=== PATIENT | male | born 1965 ===

== ENCOUNTER 2018-01-05 16:22 | Emergency (ER) | payer BC ==
[2018-01-05 16:28] VITALS: BP 160/103
--- NOTE | 2018-01-05 16:38 | ER Report ---
History and Physical Time Seen By MD: 16:34 Hx. 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 [place] who comes emergency department today with complaint of shortness of breath patient [place] has never been to this height before I denies any chest pain nausea vomiting diarrhea fever chills says that he notices feeling short of breath and somewhat lightheaded talk to bloodied up at a truck stop advised to go the emergency room on arrival here he says his symptoms he feels better eyes and his oxygen saturations are 97% he is a smoker is no significant past medical history history of [place] pulmonary emboli offered him a conference a workup including a blood work chest x-ray EKG cardiac markers he is declined he says he feels better and wants to sign himself out against medical advice advised him against this and numerous occasions this was a witnessed conversation patient again adamantly states he doesn't want states patient be discharged AMA with a diagnosis of of shortness of breath and advised him to get a to a lower altitude REVIEW OF SYSTEMS: Respiratory: Shortness of breath no cough Cardiovascular: No chest pain, no palpitations. Gastrointestinal: No vomiting, no abdominal pain. Musculoskeletal: No back pain. Remainder of the 14 system rev: Yes Allergies: Coded Allergies: No Known Drug Allergies (Unverified , 01/05/18) Reviewed Nurses Notes: Yes Old Medical Records Reviewed: Yes Hx Substance Use Disorder: No Hx Alcohol Use: No Constitutional Vital Sign - Last 24 Hours 01/05/18 16:28 Temp 97.7 Pulse 99 Resp 20 B/P (MAP) 160/103 Pulse Ox 95 O2 Delivery Room Air Physical Exam General Appearance: The patient is alert, has no immediate need for airway protection and no current signs of toxicity. [ ] Eyes: Pupils equal and round no injection. Respiratory: Chest is non tender, lungs are clear to auscultation. Cardiac: regular rate and rhythm [ ] Gastrointestinal: Abdomen is soft and non tender, no masses, bowel sounds normal. Musculoskeletal: Neck: Neck is supple and non tender. Extremities have full range of motion and are non tender. Skin: No rashes or lesions. [ ] DIFFERENTIAL DIAGNOSIS: After history and physical exam differential diagnosis was considered for altitude sickness pulmonary emboli shortness of breath secondary to cardiac, cardiac ischemia Medical Decision Making ED Course/Re-evaluation ED Course Clinical course medical decision-making patient is refusing any testing at this time says he feels better we will advise him against that however he still subsequently refuses any testing will sign him out against medical advice advised to go to lower altitude return if symptoms worsen Decision to Disposition Date: Jan 05, 2018 Decision to Disposition Time: 16:36 Depart Departure Latest Vital Signs Vital Signs Date Time Temp Pulse Resp B/P (MAP) Pulse Ox O2 Delivery O2 Flow Rate FiO2 01/05/18 16:28 97.7 99 20 160/103 95 Room Air Impression: Primary Impression: Shortness of breath Condition: Improved Disposition: AGAINST MED ADV / DISCONT CARE Patient Instructions: Hypoxia (ED) GRICEL WINN MD Jan 05, 2018 16:38
== END 2018-01-05 16:40 | disposition left against medical advice (07) ==
LOC: ER 16:29
DX: R06.02 Shortness of breath (principal); F17.210 Nicotine dependence, cigarettes, uncomplicated
CPT/HCPCS: 99284